=== PATIENT | female | born 1930 | race Caucasian/White ===

== ENCOUNTER → 2019-02-08 | Outpatient (CLI) | payer MEDICARE | END | disposition home or self-care (01) | LOC: SHCH 10:47 | PROVIDERS: ATTEND Internal Medicine Cardiovascular Disease | DX: I65.23 Occlusion and stenosis of bilateral carotid arteries (principal) | CPT/HCPCS: 93880 ==

== ENCOUNTER 2019-04-19 07:20 | Observation (INO) | payer MEDICARE ==
[2019-04-15 15:10] VITALS: BP 116/45
[2019-04-15 15:13] LABS: BASOPHILS % (AUTO) 1.2 % (0.0-5.0); EOSINOPHILS % (AUTO) 1.8 % (0.0-8.0); HEMATOCRIT 35.3 % (36-48); LYMPHOCYTES % (AUTO) 31.8 % (21.0-51.0); MEAN CORPUSCULAR HEMOGLOBIN 30.6 pg (27.0-33.0); MEAN CORPUSCULAR HGB CONC 32.7 g/dL (32.0-36.0); MEAN CORPUSCULAR VOLUME 93.7 fL (79-99); MONOCYTES % (AUTO) 9.2 % (3.0-13.0); NUCLEATED RED BLOOD CELLS 0.1 % (0.0-0.19); PLATELET COUNT (AUTO) 354 K/uL (130-400); RED BLOOD CELL COUNT(AUTO) 3.77 MIL/uL (4.00-5.50); WHITE BLOOD COUNT (AUTO) 7.8 K/uL (4.8-10.8)
[2019-04-15 15:25] LABS: PARTIAL THROMBOPLASTIN TIME 26.9 SEC (26.3-35.5)
[2019-04-15 15:34] LABS: CREATININE 1.1 mg/dL (0.5-1.5); POTASSIUM 4.9 mmol/L (3.5-5.1)
[2019-04-15 15:43] LABS: INR 0.99 (0.85-1.15); PROTHROMBIN TIME 10.4 SEC (9.6-11.6)
[~2019-04-19] VITALS: Ht 160 cm; Wt 79.7 kg
[2019-04-19] VITALS (15 sets, daily range): BP systolic 82–170; BP diastolic 33–74
[~2019-04-19 07:20] MED LIST: CEFAZOLIN SODIUM 1 GM VIAL IVP SCH; FLUT16H NASAL; FLUT1AER IH; FURO20TA4 PO; LOSA50TA64 PO; MONT10TA24 PO; SODIUM CHLORIDE 0.9% 1000ML 1,000 ML IV SCH
[2019-04-19] MEDS ORDERED: ACET-2743 PO (09:09)
--- NOTE | 2019-04-19 09:22 | NUR ---
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
[2019-04-19] MEDS ORDERED: BUPIVACAINE/PF 0.25% 30ML VIAL IJ ONE (10:01)
[2019-04-19] MEDS ORDERED: CEFAZOLIN SODIUM 1 GM VIAL ONE (10:02)
[2019-04-19] MEDS ORDERED: MIDAZOLAM HCL 1 MG/ML 2ML VIAL ONE ×3 (10:02→10:37)
[2019-04-19] MEDS ORDERED: LIDOCAINE HCL 1% MDV 50ML VIAL ONE (10:02)
[2019-04-19] MEDS ORDERED: MEPERIDINE-PF 25 MG/ML SYG ONE ×3 (10:02→10:37)
[2019-04-19] MEDS ORDERED: IOHEXOL-350 50ML VIAL IV ONE (10:32)
[2019-04-19] MEDS ORDERED: ACETAMINOPHEN-CODEINE 300/30MG TAB PO PRN (11:30)
--- NOTE | 2019-04-19 11:40 | NUR ---
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 PT denies any pain, nausea or dizziness. PT still very drowsy, resting comfortably.
[2019-04-19] MEDS: ALBUTEROL SULFATE 0.083% 2.5 MG/3 ML INH IH SCH ×3 (12:17→23:28)
[2019-04-19] MEDS: BUDESONIDE 0.5 MG/2 ML INH IH SCH (18:19)
--- NOTE | 2019-04-19 18:30 | NUR ---
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 Sling in place to left arm. Site to left pectoris with dressing clean dry and intact. no s/s of bleeding. patient oriented to room. Call light placed within reach. Bed to lowest position. IV patent to left hand. Patient assisted up to bathroom. Pt with no other questions or concerns.
--- NOTE | 2019-04-19 18:30 | NUR ---
PT to room 204, transferred to room by YUNIER Armas. Report called prior to taking pt up. Dressing remains dry, clean and intact to left pectoral, with left arm in sling. Pt tolerating liquids/solid food and voiding well up to this point. Pt denies any pain, nausea or dizziness.
[2019-04-19] MEDS ORDERED: MONTELUKAST SODIUM 10 MG TAB PO SCH (21:00)
[2019-04-19] MEDS: ACETAMINOPHEN EXTRA STRENGTH 500 MG TABLET PO PRN (22:31)
[2019-04-20 00:48] VITALS: BP 123/47
[2019-04-20] MEDS: ALBUTEROL SULFATE 0.083% 2.5 MG/3 ML INH IH SCH ×2 (06:30→11:10)
[2019-04-20] MEDS: BUDESONIDE 0.5 MG/2 ML INH IH SCH (06:30)
[2019-04-20 07:00] VITALS: BP 147/51
[2019-04-20] MEDS: ACETAMINOPHEN EXTRA STRENGTH 500 MG TABLET PO PRN (08:48)
[2019-04-20] MEDS ORDERED: FLUTICASONE PROPIONATE 50MCG/SPRAY 16 GM BOTTLE NS SCH (09:00)
[2019-04-20] MEDS ORDERED: LOSARTAN 50 MG TABLET PO SCH (09:00)
[2019-04-20] MEDS ORDERED: FUROSEMIDE 20 MG TABLET PO SCH (09:00)
[2019-04-20 11:00] VITALS: BP 124/51
--- NOTE | 2019-04-20 16:04 | NUR ---
Patient discharged in stable condition. Dressing to left chest, clean dry and intact. Pt instructed to f/u with Dr. Lee on 04/27. Agreed. Patient instructed on s/s to report, do not elevate the left arm for six weeks and report any s/s of infection. Call 911 if chest pain, shortness of breath, changes in mental status severe pain. Pt verbalized understanding to teaching. IV and telemonitor removed.
== END 2019-04-20 16:32 | disposition home or self-care (01) ==
LOC: DAH 07:20 → DAHIP 07:21 → 2AH 18:23
PROVIDERS: ADMIT Internal Medicine; ATTEND Internal Medicine
DX: I49.5 Sick sinus syndrome (principal); I47.1 Supraventricular tachycardia; E78.5 Hyperlipidemia, unspecified; I48.0 Paroxysmal atrial fibrillation; I10 Essential (primary) hypertension; Z79.899 Other long term (current) drug therapy; Z90.710 Acquired absence of both cervix and uterus; Z90.89 Acquired absence of other organs; Z98.42 Cataract extraction status, left eye; Z82.49 Family history of ischemic heart disease and other diseases of the circulatory system
CPT/HCPCS: 33208; 36415; 71045; 85025; 80048; 85610; 85730; 94640 ×7; 94664; A4606; C1785; C1898 ×2; G0378 ×28; J0690; J2175 ×3; J2250 ×3; J3490 ×2; J7030; Q9967; 99156; 99157